=== PATIENT | male | born 1975 | race Caucasian/White ===

== ENCOUNTER → 2018-09-29 | Day surgery (SDC) | payer SELFPAY ==
[2018-09-28 10:23] LABS: BASOPHILS # (AUTO) 0.1 (0.0-0.1); BASOPHILS % 0.6 % (0.0-1.0); EOSINOPHILS # (AUTO) 0.3 (0.0-0.4); EOSINOPHILS % 1.5 % (0.0-6.0); HEMATOCRIT 43.2 % (38.2-49.6); HEMOGLOBIN 14.7 g/dL (14.0-18.0); LYMPHOCYTES # (AUTO) 4.1 (1.0-3.2); LYMPHOCYTES % 25.4 % (18.0-39.1); MEAN CORPUSCULAR VOLUME 94.1 fL (81-99); MONOCYTES # (AUTO) 1.3 (0.2-0.8); MONOCYTES % 7.7 % (4.4-11.3); NEUTROPHILS # (AUTO) 10.5 (2.1-6.9); NEUTROPHILS % 64.4 % (38.7-80.0); PLATELET COUNT 374 x10e3/uL (140-360); RED BLOOD COUNT 4.59 x10e6/uL (4.3-5.7); RED CELL DISTRIBUTION WIDTH 12.6 % (11.7-14.4)
--- NOTE | 2018-09-28 11:18 | Diagnostic Imaging Report ---
EXAMINATION: PA and lateral views of the chest. COMPARISON: None CLINICAL HISTORY: Preadmission, axillary surgery DISCUSSION: Lines/tubes: None. Lungs: The lungs are well inflated and clear. No pneumonia or pulmonary edema. Calcified granuloma left lower lung. Pleura: No pleural effusion or pneumothorax. Heart and mediastinum: The cardiomediastinal silhouette is normal. Bones and soft tissues: No acute bony abnormalities. IMPRESSION: No acute cardiopulmonary abnormalities. Signed by: Dr. Sim Arrieta M.D. on 09/28/2018 11:14 AM
[~2018-09-29] MED LIST: BACITRACIN 50,000 UNIT VIAL ONE; BUPIVACAINE HCL 0.5% INJ 30 ML VIAL INJ ONE; CEFAZOLIN SOD 2 GM/D5W 50ML 50 ML IV ONE; CLINDAMYCIN HC300 MG PO; DEXAMETHASONE SOD PHOS INJ 4 MG/ML VIAL ONE; HYDROCODONE PO; HYDROCODONE/APAP 10MG-325MG TAB ONE; HYDROMORPHONE 2MG/ML 2 MG/ML ML ONE; KETOROLAC TROME10 MG PO; LIDOCAINE HCL 2% LOCAL INJ 5 ML SDV VIAL INJ ONE; MEPERIDINE HCL INJ 50 MG/ML INJ ONE; MINERAL OIL STERILE 10ML VIAL ONE; MULTIVITAMIN PO; MUPIROCIN 2% OINT 22 GM TUBE ONE; NORCO 10-325 T1 EACH PO; ONDANSETRON HCL INJ 2 MG/ML VIAL ONE; PRILOSEC OTC20 MG PO; PROPOFOL IV EMULSION 10 MG/ML 20 ML VIAL ONE; SEVOFLURANE INHAL SOLN 250 ML PEN BTL ONE; VITAMIN A PO
--- OUTSIDE RECORDS SUMMARY | 2018-09-29 05:26 | XMS REPORT ---
Author [facility] Address Unknown Phone Unavailable Care Team Providers Care Cattle Sticker Name Role Phone LYLE RHODES Unavailable Unavailable Problems This patient has no known problems. Allergies, Adverse Reactions, Alerts This patient has no known allergies or adverse reactions. Medications This patient has no known medications. Results Test Description Test Time Test Comments Text Results Atomic Results Result Comments CHEST 2 VIEWS 2018-09-28 11:14:00 [place] [address] Patient Name: KARMA WALTON MR #: [id number] : 1975 Age/Sex: 43/M Req #: [id number] [facility] Physician: Ordered by: LYLE RHODES MD Report #: [id number] Location: OR Room/Bed: Procedure: [id number] DX/CHEST 2 VIEWS Exam Date: 09/28/18 Exam Time: 1024 REPORT STATUS: Signed EXAMINATION: PA and lateral views of the chest. CO MPARISON: None CLINICAL HISTORY: Preadmission, axillary surgery DISCUSSION: Lines/tubes: None. Lungs: The lungs are well inflated and clear. No pneumonia or pulmonary edema. Calcified granuloma left lower lung. Pleura: No pleural effusion or pneumothorax. Heart and mediastinum: The cardiomediastinal silhouette is normal. Bones and soft tissues: No acute bony abnormalities. IMPRESSION: No acute cardiopulmonary abnormalities. Signed by: Dr. Karen Avilez M.D. on 09/28/2018 11:14 AM Dictated By: KAREN AVILEZ MD Isha ctronically Signed By: KAREN AVILEZ MD on 09/28/181113 Transcribed By: GUICHO on 09/28/181113 COPY TO: LYLE RHODES MD
--- OUTSIDE RECORDS SUMMARY | 2018-09-29 05:26 | XMS REPORT | Clinical Summary ---
Author Author [facility] Address Unknown Phone Unavailable Care Team Providers Care Cutter Apprentice Hand Name Role Phone Asked, No Pcp PCP Unavailable Allergies No Known Allergies Medications End Date Status Medication Sig Dispensed Refills Start Date Active HYDROcodone-acetaminophen TK 1 T PO Q 4 0 (NORCO) 10-325 mg per H PRN P 8 tablet Active clindamycin phosphate Apply 1 inch 75 mL 0 (CLINDAGEL) 1 % gel, once topically 8 daily daily. Apply thin layer of gel to bilateral axilla daily. 05/08/2018 doxycycline (VIBRAMYCIN) Take 1 14 capsule 0 100 MG capsule capsule (100 8 mg total) by mouth daily for 14 days. Active Problems Not on file Encounters Care Team Description Date Type Specialty Harshad Redd MD Axillary hidradenitis suppurativa (Primary Dx) 04/24/2018 Emergency Emergency Medicine after 09/28/2017 Social History Date Tobacco Use Types Packs/Day Years Used Current Every Day Smoker Cigarettes 3 Smokeless Tobacco: Never Used Alcohol Use Drinks/Week oz/Week Comments Yes Sex Assigned at Date Recorded Not on file Industry Job Start Date Occupation Not on file Not on file Not on file Travel End Travel History Travel Start No recent travel history available. Last Filed Vital Signs Time Taken Vital Sign Reading 04/24/2018 7:30 AM CDT Blood Pressure 127/81 04/24/2018 7:30 AM CDT Pulse 88 04/24/2018 7:30 AM CDT Temperature 36.7 C (98 F) 04/24/2018 7:30 AM CDT Respiratory Rate 17 04/24/2018 7:30 AM CDT Oxygen Saturation 98% - Inhaled Oxygen - Concentration - Weight - 04/24/2018 6:06 AM CDT Height 182.9 cm (6') - Body Mass Index - Plan of Treatment Not on file Procedures Comments Procedure Name Priority Date/Time Associated Diagnosis INCISION AND DRAINAGE Routine 04/24/2018 6:17 AM CDT after 09/28/2017 Results * INCISION AND DRAINAGE (04/24/2018 6:17 AM CDT) Narrative Performed At Harshad Redd MD 04/24/20187:11 AM I&D/Aspiration/Amputation Performed by: HARSHAD REDD Authorized by: HARSHAD REDD Consent: Consent obtained:Verbal Consent given by:Patient Risks discussed:Bleeding, incomplete drainage, infection, damage to other organs and pain Alternatives discussed:Delayed treatment and no treatment Pre-procedure details: Skin preparation:Chloraprep Anesthesia (see MAR for exact dosages): Anesthesia method:Local infiltration Local anesthetic:Lidocaine 1% WITH epi Procedure details: Complexity:Simple Needle aspiration: Yes Needle size:18 G Drainage:Purulent Drainage amount:Scant Packing materials:None Post-procedure details: Patient tolerance of procedure:Tolerated well, no immediate complications Comments: Initial plan for I&D, the bedside ultrasound showed small simple abscess, drained via needle aspiration at bedside with 18-gauge needle. Yielded approximately 4 cc of purulent discharge.Bedside ultrasound postprocedure showed no abscess. after 09/28/2017 Insurance Payer Benefit Subscriber ID Type Phone Address Plan / Group JOSE GARCIA xxxxxxx [facility] Advance Directives Patient has advance care planning documents on file. For more information, maliha mosher contact: Ruslan Tran [address] [place] [address]
[2018-09-29 06:07] LABS: BASOPHILS # (AUTO) 0.1 (0.0-0.1); BASOPHILS % 0.6 % (0.0-1.0); EOSINOPHILS # (AUTO) 0.3 (0.0-0.4); EOSINOPHILS % 1.7 % (0.0-6.0); HEMATOCRIT 42.8 % (38.2-49.6); HEMOGLOBIN 14.7 g/dL (14.0-18.0); LYMPHOCYTES # (AUTO) 4.5 (1.0-3.2); LYMPHOCYTES % 25.8 % (18.0-39.1); MEAN CORPUSCULAR HGB CONC 34.3 g/dL (31-35); MEAN CORPUSCULAR VOLUME 93.2 fL (81-99); MONOCYTES # (AUTO) 1.3 (0.2-0.8); MONOCYTES % 7.5 % (4.4-11.3); NEUTROPHILS # (AUTO) 11.1 (2.1-6.9); NEUTROPHILS % 63.9 % (38.7-80.0); PLATELET COUNT 291 x10e3/uL (140-360); RED BLOOD COUNT 4.59 x10e6/uL (4.3-5.7); RED CELL DISTRIBUTION WIDTH 12.6 % (11.7-14.4)
--- NOTE | 2018-09-29 08:32 | Operative Report ---
DATE OF PROCEDURE: September 29, 2018 PREOPERATIVE DIAGNOSIS: Acute and chronic hidradenitis suppurativa, bilateral axillae. POSTOPERATIVE DIAGNOSIS: Acute and chronic hidradenitis suppurativa, bilateral axillae. PROCEDURE: Wide excision of acute and chronic hidradenitis suppurativa from bilateral axilla. MANUFACTURING ENGINEER ASSEMBLY: None. ANESTHESIA: General. INDICATIONS AND FINDINGS: Patient is a 43-year-old male who has had chronic hidradenitis suppurativa also with acute infection in a few areas, all of which was excised. At surgery, the patient was found to have an area on each side that was about 15 x 20 cm of chronically infected and scarred tissue involving skin and subcutaneous tissue and on both sides extending down to fascia and to the axillary tissues. On the left side, there was a small moderate purulent fluid within the specimen suggesting a chronic abscess. TECHNIQUE: After adequate general anesthesia with the patient in the supine position, each axillae was prepped and draped in sterile fashion with Betadine solution. Starting on the left side, an incision was made around the area of chronically infected and scarred tissue in the axilla. This was carried down through full thickness of skin and subcutaneous tissue. All the chronically infected and scarred tissue was excised. Some areas down to the fascia overlying the muscle down and down to the axilla removing all this tissue to where it was healthy tissue. Hemostasis achieved with electrocautery. One larger vessel was ligated with 2-0 Vicryl. The wound was irrigated with saline. Attention was then turned to the right side. Once again, an incision was made encompassing all the chronically scarred skin and subcutaneous tissue. It was carried into the subcutaneous tissue down to the fascia. The fascia was not removed. It was over the axilla and extended down to the axillary tissue. All the chronically infected tissue was excised back to healthy tissue. Hemostasis achieved with electrocautery. One larger vessel was ligated with 2-0 Vicryl. Hemostasis in each wound was seen to be adequate. The patient remained under anesthesia for skin grafting to each wound, details of which are covered in Dr. Rhodes's note. Patient tolerated this portion of the procedure well. Estimated blood loss was 125 mL. There were no complications. All counts were correct. Job#: [id number] RI cc:LYLE RHODES MD
[2018-09-29 12:05] VITALS: BP 126/78
--- NOTE | 2018-09-29 12:53 | Operative Report ---
DATE OF PROCEDURE: September 29, 2018 PREOPERATIVE DIAGNOSIS: Hidradenitis, axillas bilateral. POSTOPERATIVE DIAGNOSIS: Hidradenitis, axillas bilateral. PROCEDURE PERFORMED: Split-thickness skin grafting bilateral axillas, 600 cm2. ANESTHESIA: General. HISTORY: Patient is a 43-year-old male who is undergoing excision of bilateral axillary hidradenitis by the general surgery team. After they completed with their portions of the procedure, the plastic surgical team will complete split-thickness skin grafting. Risks, benefits, and alternatives of treatment were discussed with the patient. He is prepared to undergo the procedure as outlined. PROCEDURE: Patient was marked preoperatively in the holding area. He was brought to the operating theater by the general surgery team. After the completion of the general surgery portion of the procedure, the plastic surgical team came in. Patient was asleep under general anesthesia. Both axillas have been excised full-thickness down to the fascia of the muscle and subcutaneous tissues. The wounds measured approximately 300 cm2 each. The split-thickness skin grafts were harvested from the anterior thigh using a dermatome set for approximately 15,000 of an inch thickness. The grafts were meshed in 1.5 to 1 fashion. They were in place on the wounds of the axillas and secured using surgical clips. At this point, a bolster type dressing was fashioned by circumferentially placing 3-0 silk sutures. Xeroform gauze, Bactroban ointment, and then moistened cotton was placed onto the grafts and the silk sutures were then tied over the top of the dressings in a bolster type fashion. The estimated blood loss for this portion of the procedure was approximately 100 mL. The donor sites on the anterior thighs were dressed with Xeroform gauze and sterile dressings. The patient was returned to recovery room in satisfactory condition and discharged with a postoperative instruction sheet as well as a followup appointment. Job#: [id number] JAYE
== END | disposition home or self-care (01) ==
LOC: OR 05:23
PROVIDERS: ATTEND Plastic Surgery
DX: L73.2 Hidradenitis suppurativa (principal); I10 Essential (primary) hypertension; K21.9 Gastro-esophageal reflux disease without esophagitis; F17.210 Nicotine dependence, cigarettes, uncomplicated; Z01.810 Encounter for preprocedural cardiovascular examination; Z01.812 Encounter for preprocedural laboratory examination; Z01.818 Encounter for other preprocedural examination
CPT/HCPCS: 11451; 15100; 15101 ×5; 36415 ×2; 71046; 85025 ×2; 93005; J0690; J1100; J1170; J2001; J2175; J2405; J2704

== ENCOUNTER → 2019-06-23 | Day surgery (SDC) | payer SELFPAY ==
[2019-06-22 12:16] LABS: BASOPHILS # (AUTO) 0.1 (0.0-0.1); BASOPHILS % 0.6 % (0.0-1.0); EOSINOPHILS # (AUTO) 0.2 (0.0-0.4); EOSINOPHILS % 1.5 % (0.0-6.0); HEMATOCRIT 39.4 % (38.2-49.6); HEMOGLOBIN 13.2 g/dL (14.0-18.0); LYMPHOCYTES # (AUTO) 3.6 (1.0-3.2); LYMPHOCYTES % 25.8 % (18.0-39.1); MEAN CORPUSCULAR HEMOGLOBIN 30.8 pg (28-32); MEAN CORPUSCULAR HGB CONC 33.5 g/dL (31-35); MEAN CORPUSCULAR VOLUME 92.1 fL (81-99); MONOCYTES # (AUTO) 0.9 (0.2-0.8); MONOCYTES % 6.8 % (4.4-11.3); NEUTROPHILS # (AUTO) 8.9 (2.1-6.9); NEUTROPHILS % 64.6 % (38.7-80.0); PLATELET COUNT 254 x10e3/uL (140-360); RED BLOOD COUNT 4.28 x10e6/uL (4.3-5.7); RED CELL DISTRIBUTION WIDTH 12.7 % (11.7-14.4)
[~2019-06-23] MED LIST changes: +ANTIBIOTIC PO; +ANTIBIOTIC28.4 GM; -BACITRACIN 50,000 UNIT VIAL ONE; +BUPIVACAINE 0.5%/EPI 30 ML SDV INJ ONE; -BUPIVACAINE HCL 0.5% INJ 30 ML VIAL INJ ONE; +CEFADROXIL500 MG PO; -CEFAZOLIN SOD 2 GM/D5W 50ML 50 ML IV ONE; +CEFTRIAXONE SOD 1 GM/NS 50 ML 100 ML IV ONE; +FENTANYL CITRATE/PF 100MCG/2 ML INJ ONE; -HYDROCODONE/APAP 10MG-325MG TAB ONE; +HYDROMORPHONE 1MG/1ML INJ ONE; +KETAMINE HCL INJ 50 MG/ML 10 ML VIAL ONE; +KETOROLAC TROMETHAMINE 30 MG/ML VIAL ONE; +LIDOCAINE HCL 2% JELLY 5 ML TUBE ONE; -MEPERIDINE HCL INJ 50 MG/ML INJ ONE; +MIDAZOLAM HCL 2 MG/2 ML VIAL ONE; -MINERAL OIL STERILE 10ML VIAL ONE; +MORPHINE SULFATE INJ 10 MG/ML ONE; -MUPIROCIN 2% OINT 22 GM TUBE ONE; -ONDANSETRON HCL INJ 2 MG/ML VIAL ONE; +ONDANSETRON HCL INJ 2MG/ML 2ML 2 MG/ML VIAL ONE
--- OUTSIDE RECORDS SUMMARY | 2019-06-23 10:37 | XMS REPORT | Clinical Summary ---
Author Author [facility] Address Unknown Phone Unavailable Care Team Providers Care It Program Engagement Director Name Role Phone Asked, No Pcp PCP [...] layer of gel to bilateral axilla daily. Active Problems Not on file Social History Date Tobacco Use Types Packs/Day Years Used Current Every Day Smoker Cigarettes 3 Smokeless Tobacco: Never Used Drinks/Week oz/Week Comments Alcohol Use Yes Sex Assigned at Date Recorded Not on file Industry Job Start Date Occupation Not on file Not on file Not on file Travel End Travel History Travel Start No recent travel history available. Last Filed Vital Signs Not on file Plan of Treatment Not on file Results Not on fileafter 06/22/2018 Insurance Type Payer Benefit Subscriber ID Effective Phone Address Plan / Dates Group PPO GALAXY GALAXY xxxxxxx [id number] Advance Directives For more information, please contact: [phone] Patient Tube Wrapper Explanation Type Date Recorded Advance Directives, Living Will and Medical Power of Forest Ecologist
[2019-06-23 15:20] VITALS: BP 150/89
--- NOTE | 2019-06-23 17:50 | Operative Report ---
DATE OF PROCEDURE: 06/23/2019 SURGEON: Cristiano Sinclair MD PREOPERATIVE DIAGNOSIS: Multiple areas of perineal hidradenitis suppurativa. POSTOPERATIVE DIAGNOSIS: Multiple areas of perineal hidradenitis suppurativa. PROCEDURE: Wide excision of multiple areas of hidradenitis suppurativa in the perineum with flap closure. CUTTER OPERATOR: None. ANESTHESIA: General. INDICATIONS AND FINDINGS: The patient is a 44-year-old male, who has had recurrent episodes of infection in the perineum, secondary to hidradenitis. At Surgery, there were four separate areas, where there was active hidradenitis with granulation tissue as well as some purulent fluid. All of which was were excised. Areas were from the right and left scrotum, right anterior thigh, and left inferior buttock. TECHNIQUE: After adequate general endotracheal anesthesia, the patient in the lithotomy position, the perineum was prepped and draped in a sterile fashion with Betadine solution. Starting at the right side of the scrotum, the chronically inflamed fibrotic tissue was excised down to healthy tissue, there was some granulation tissue, which was excised and all the chronic infected tissue was excised. Hemostasis was achieved with electrocautery. The wound was irrigated with saline. The scrotal skin was advanced as a flap. Subcutaneous tissue was closed with running suture of 2-0 Vicryl. Skin was closed with interrupted sutures of 3-0 Vicryl loosely. In the right anterior thigh away from this area, there was a 2nd area where there was chronic hidradenitis suppurativa, this was also excised in elliptical fashion down to healthy tissue. Hemostasis was achieved with electrocautery. Skin edges were undermined and the flaps advanced and subcutaneous tissue was closed with interrupted sutures of 2-0 Vicryl and the skin was closed loosely with interrupted sutures of 3-0 Vicryl. In the inferior buttock area, there was also a 2nd area where there was inflamed tissue and there was some purulent drainage, this area was also widely excised in elliptical fashion and all the inflamed tissue was excised back to healthy tissue. Hemostasis was achieved with electrocautery. The wound was irrigated with saline. Skin edges were undermined and the wound was then closed in layers with 2-0 Vicryl to the subcutaneous tissue and skin was closed loosely with 3-0 Vicryl interrupted sutures; and the left side of the scrotum there was an area where there was more active infection, this area was also all excised back to healthy tissue, was a larger area. Hemostasis was achieved with electrocautery. All the inflamed tissue was excised. It was irrigated with saline, inspected for hemostasis, which was seen to be adequate. The skin was closed with interrupted sutures of 3-0 Vicryl. Sterile dressings applied to each wound. The patient tolerated the procedure well. Estimated blood loss was 200 mL. There were no complications. All counts were correct. The patient was taken to the recovery room in satisfactory condition. MD MARIA G Devries/ALEE /[id number]
== END | disposition home or self-care (01) ==
LOC: OR 10:31
PROVIDERS: ATTEND Surgery
DX: L73.2 Hidradenitis suppurativa (principal); F17.210 Nicotine dependence, cigarettes, uncomplicated; Z01.810 Encounter for preprocedural cardiovascular examination; Z01.812 Encounter for preprocedural laboratory examination; Z68.30 Body mass index [BMI] 30.0-30.9, adult
CPT/HCPCS: 11471 ×2; 36415; 85025; 87071; 87075; 87205; 88305; 93005; J0696; J1100; J1170 ×2; J1885; J2001 ×2; J2250; J2270; J2405; J2704; J3010